=== PATIENT | male | born 1985 ===

== ENCOUNTER 2021-01-31 05:37 | Emergency (ER) | payer SELFPAY ==
[2021-01-31] MEDS ORDERED: Ibuprofen 200 MG TAB ONE (06:08)
== END 2021-01-31 06:13 | disposition home or self-care (01) ==
LOC: ERS 05:37
DX: K40.90 Unilateral inguinal hernia, without obstruction or gangrene, not specified as recurrent (principal); F17.210 Nicotine dependence, cigarettes, uncomplicated
CPT/HCPCS: 99283